=== PATIENT | male | born 1950 | race Caucasian/White ===

== ENCOUNTER 2020-08-31 14:06 | Outpatient (CLI) | payer MEDICARE, SELFPAY ==
--- NOTE | 2020-08-31 14:15 | USCV_ITS ---
Pedro Florence Age: 69 Gender: M : 1950 Exam Date: 08/31/2020 14:30 Ordering Phys: Hemant Loza DO Technologist: Qi Ferguson [place] [facility] [place]ication: LT LEG SWELLING AND PAIN PROCEDURES: Venous duplex imaging was performed in only the left lower extremity. The following venous structures were evaluated: common femoral vein, profunda vein, proximal portion of the greater saphenous vein, superficial femoral vein, and the popliteal vein. In addition, the posterior tibial and peroneal trunk were evaluated. Serial compression, augmentation maneuvers, and spectral Doppler flow evaluation were performed. FINDINGS: Normal 2-D Doppler and augmentation and compressibility throughout the lower extremity venous structures. Additional imaging through the proximal calf veins also reveals no thrombus. Limited evaluation of the greater saphenous vein is patent with no thrombus.. CONCLUSIONS No evidence of left lower extremity DVT. Guillermo Emery MD (Electronically Signed) Final Date: 31 August 2020 15:35 S
== END 2020-08-31 14:07 | disposition home or self-care (01) ==
LOC: RAD 14:13
PROVIDERS: Visit Provider Orthopaedic Surgery
DX: M79.662 Pain in left lower leg (principal); M79.89 Other specified soft tissue disorders
CPT/HCPCS: 87635; 93971

== ENCOUNTER 2020-09-02 06:35 | Inpatient (IN) | payer MEDICARE, SELFPAY ==
[2020-09-01 12:34] VITALS: BMI 21.7
[2020-09-02] VITALS (23 sets, daily range): BP systolic 142–209; BP diastolic 73–151; PULSE 73–118; RESP 14–30; TEMP 36.2–37.2; O2SAT 90–100
--- NOTE | 2020-09-02 | SCC_ITS ---
Procedure Done: ORIF Left Tibial Plateau 135.5 seconds of fluoroscopic guidance, for a cumulative dose of 7.62 mGy, was provided to Dr. Loza by the radiology department. C-arm images of the LEFT lower leg were saved for the patient's permanent record. [facility] CENTERDylan
--- NOTE | 2020-09-02 | XR_ITS ---
WS: [id number] INTRAOPERATIVE TECHNIQUE: 4 Spot fluoroscopic images for intraoperative purposes. FLUOROSCOPY TIME: 135.5 seconds CLINICAL INFORMATION: orif left knee COMPARISON: None. FINDINGS: Plate and screw fixation left tibia. Hardware appears in good position. XR/XR knee LT 1-2V [id number] IMPRESSION: Images obtained for intraoperative purposes.
--- NOTE | 2020-09-02 06:39 | XRR_ITS ---
PROCEDURE INFORMATION: Exam: XR Chest, 1 View Exam date and time: 09/02/2020 6:53 AM Age: 69 years old Clinical indication: Pre-operative exam; Cardiovascular screening and respiratory screening exam; Additional info: Pre op TECHNIQUE: Imaging protocol: XR of the chest Views: 1 view. COMPARISON: CR Chest 1 view [id number] 08/15/2020 8:34 PM FINDINGS: Lungs: Emphysema Pleural space: Probable calcification right apex. In mild apical pleural thickening. Asymmetric opacity right greater than left. Consider CT chest. Heart/Mediastinum: Unremarkable. No cardiomegaly. Bones/joints: Unremarkable. XR/XR chest 1V portable [id number] IMPRESSION: Possible calcification right apex. mild apical pleural thickening. Asymmetric opacity right greater than left. Consider CT chest. .
--- NOTE | 2020-09-02 06:39 | ECG_ITS ---
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 Measurements Intervals [place] Rate: 85 P: 61 MD: 95 QRS: 77 QRSD: 100 T: 76 QT: 375 QTc: 448 Interpretive Statements SINUS RHYTHM WITH SHORT MD INTERVAL POSSIBLE RIGHT VENTRICULAR CONDUCTION DELAY [RSR (QR) IN V1/V2] VOLTAGE CRITERIA FOR LVH No previous ECG available for comparison Electronically Signed On 09-02-2020 12:56:57 CDT by Francisca Gallo M.D. [id number]
--- NOTE | 2020-09-02 07:06 | ANES.PREANE2 ---
Pre-Anesthetic Assessment Pre-Anesthetic Assessment: Height/Weight: Height 1.83 m Weight 72.575 kg Preop Diagnosis: Left Tibial [place] Proposed Procedure: Operation Date: 09/02/20 08:10 Proposed Procedures p ORIF Left Tibial Plateau with removal of external fixator 57388 S82.142A(Left) - Hemant Loza DO s Hardware Removal External Fixator Lower(Left) - Hemant Loza DO Familial anesthetic complications: None Was Beta Caro taken within 24 hours: N/A Last intake: NPO > 8 hrs Social: Social History: Alcohol (used to drink 12 pack a day, none in 3 weeks) and Tobacco Exam: Pre-Anes Outpt Exam: alert, oriented x 3, clear to auscultation bilaterally and regular rate & rhythm Airway: Cervical ROM: WNL MP: 2 Dentition: Other (edentulous) Additional comments: full delgado GI: GI: GERD Anesthetic Plan: ASA status: 2 Anesthesia: General and Regional (specify below) Risk of > 500 ml blood loss (7ml/kg in children): No PFSH Anesthesia PFSH: Social History Smoking and tobacco status: current every day smoker cigarettes Packs smoked per day: 2 Alcohol intake: former Year of sobriety/quit date alcohol: 2 wk Data Anesthesia Cardiac Studies: No Data to Display
[2020-09-02] MEDS: sodium chloride 0.9% 1,000 ML 30 ML IV (07:21)
--- NOTE | 2020-09-02 08:15 | W.PM.OPSUD ---
Surgery/Procedure H&P Update DATE OF PROCEDURE: September 02, 2020 DATE H&P PERFORMED: 08/31/20 H&P UPDATE INFORMATION: I have reviewed H&P completed within last 30 days, I have examined patient prior to procedure, No changes to prior documentation and H&P is in [facility] EMR on date indicated PREOP DIAGNOSIS: Left Tibial [place] PLANNED PROCEDURE: Operation Date: 09/02/20 08:10 Proposed Procedures p ORIF Left Tibial Plateau with removal of external fixator 71188 S82.142A(Left) - Hemant Loza DO s Hardware Removal External Fixator Lower(Left) - Hemant Loza DO Related Problem List Diagnoses (1) Tibial plateau fracture, left: Qualifiers: Encounter type: initial encounter Fracture type: closed Qualified Code(s): S82.142A - Displaced bicondylar fracture of left tibia, initial encounter for closed fracture
--- NOTE | 2020-09-02 08:17 | P.OP_ITS ---
Operative Report Date of procedure: September 02, 2020 Pre-op Diagnosis: Left Tibial Plateau Post-op diagnosis: same Procedure Done: ORIF Left Tibial Plateau Removal ex fix from left leg Implants: [place] Surgeon: Hemant Loza Anesthesia: General Estimated blood loss (mL): 5 Tourniquet time (min): 70 Complications: none Condition: stable Disposition: PACU Procedure: Procedure is patient is a 69-year-old male who sustained a left tibial plateau fracture was treated in [place] with an external fixator and sent to [place] for definitive treatment. Patient was brought to the operative suite placed in the supine position. All areas impingement were well padded patient was prepped and draped in normal sterile fashion. Skin was made along the lateral tibial plateau. Once the fracture was exposed [id number] reduction clamps were placed to reduce the fracture. Lag screw was placed from lateral to medial to hold the fracture reduced and then a [place] proximal tibial plate was placed. Multiple screws were placed with the proximal part of the plate. Attempts were made to reduce the medial side fracture without having to open it. However was elected to open the medial side and place a buttress plate. 2 screws were placed proximal and distal to the fracture. The distal end of the lateral plate had 3 screws placed. AP lateral fluoroscopy of the tibia were taken and showed adequate position of the fracture and hardware. Patient had wounds were closed with Vicryl and renae. Patient was then had sterile dressings placed and was transferred to the PACU in stable condition Associated Problem List Diagnoses (1) Retained orthopedic hardware: (2) Tibial plateau fracture, left: Qualifiers: Encounter type: initial encounter Fracture type: closed Qualified Cod e(s): S82.142A - Displaced bicondylar fracture of left tibia, initial encounter for closed fracture
[2020-09-02] MEDS: labetalol 5 mg/mL SDV 20mL 10 MG IVP ×2 (11:01→13:44)
--- NOTE | 2020-09-02 11:02 | SUR.PHASEI ---
1053 PATIENT TO PACU FROM OR. RR EVEN AND UNLABORED. DRESSING TO LEFT LEG, CDI.
[2020-09-02] MEDS: fentaNYL 50 mcg/mL INJ 2mL IVP ×2 (11:10→11:19)
--- NOTE | 2020-09-02 11:19 | P.DS_ITS ---
Discharge Providers Date of Discharge: September 02, 2020 Attending Provider at Discharge: Hemant Loza DO Diagnoses at Discharge Discharge Diagnosis (1) Retained orthopedic hardware: Status: Acute (2) Tibial plateau fracture, left: Status: Acute Qualifiers: Encounter type: initial encounter Fracture type: closed Qualified Code(s): S82.142A - Displaced bicondylar fracture of left tibia, initial encounter for closed fracture Reason for Visit Reason for Visit: ORIF left tibial plateau fracture with removal of Hospital Course Discharge Summary: Patient had open reduction internal fixation of the left tibial plateau on his admission date of 09/02. On rounds on 102 patient had his pain controlled and was ready to go home however his blood pressure is elevated at 190/100. The plan will be to discharge him today if this can get under control and I will see him back in the clinic in 2 weeks. Discharge Data Data Completed and Pending: Completed Studies During Hospitalization Category Date Time Status XR chest 1V dhruv ble [id number] Routine Exams 09/02/20 06:39 Completed XR knee LT 1-2V 7 3560 Routine Exams 09/02/20 Completed Pending at discharge Category Date Time Status C-arm Fluoroscopy [id number] Routine Exams 09/02/20 08:05 Taken Vitals: Last Vital Signs Temp 97.4 F L 09/02/20 10:53 Pulse 74 09/02/20 11:15 Resp 30 H 09/02/20 11:15 BP 159/84 09/02/20 11:15 Pulse Ox 97 09/02/20 11:15 Discharge Plan Discharge Patient Disposition: Home Condition: Stable Prescriptions: No Action pantoprazole [Protonix] 20 mg tablet,delayed release (DR/EC) 20 mg PO DAILY RF: 0 ferrous sulfate [Feosol] 325 mg (65 mg iron) tablet 325 mg PO DAILY RF: 0 ascorbate calcium (vitamin C) 500 mg tablet 500 mg PO DAILY RF: 0 multivitamin Capsule 1 cap PO DAILY RF: 0 hydrocodone-acetaminophen [[place]] 5-325 mg tablet 1 tab PO BID PRN (Reason: Pain) RF: 0 enoxaparin [Lovenox] 30 mg/0.3 mL syringe 30 mg SUBCUT Q12H RF: 0 Referrals: Hemant Loza DO [Physician] - 2 weeks Discharge Diet: Advance as tolerated Discharge Activity: Increase activity as tolerated, Use walker/crutches as instructed and As per PT/OT instructions Activity Restrictions/Additional Instructions: You are being discharged from the hospital today during which time you have been under the care of Dr. Loza. You had a left tibial plateau fracture. You were treated for this injury with open reduction internal fixation. You may resume you normal diet (including any special diets as directed by your primary doctor) as well as your home medications. You should follow up with you primary doctor if you have any questions regarding medication you took prior to your stay in the hospital. You may take your pain medication as prescribed. After the first few days, take your pain medication as needed. Do not drive or drink alcohol while taking your pain medication. Your injury may increase your risk of developing a blood clot,or DVT, in your arm or leg. This could potentially dislodge and travel to your lungs and become a life threatening condition called a pulmonary embolus,or PE. You have been prescribed Lovenox to be taken to prevent this. Frequent movement of the lower extremities will also help prevent this from occurring. If you develop any new or worsening cough, chestpain, bloody sputum or shortness of breath, call 911 or go to the Emergency Room. Always keep your surgical incision/dressing clean and dry. If you experience increasing pain at your incision site, redness, swelling, increasing discharge, foul odors, or fevers (greater than 100.4), night sweats or chills you should call the office at the above number. If you feel this is an emergency you should be evaluated in the Emergency Department of a nearby hospital. Orthopedic Patient Instructions Summary: Weight Bearing: Nonweightbearing left lower extremity Activity: As tolerated. Diet: Regular. Splint Care: Keep dressing clean and dry. Cover with a plastic bag for bathing. Wound Care: Keep dressing clean and dry. Anticoagulation: Lovenox Pain Medication: Take only as needed. Ice, rest and elevation will be of great benefit. Please plan to follow-up [facility] Dr Loza in 2 weeks. You will need to call the clinic [phone] to schedule this visit. Thank you far allowing me to participate in your care. Do not hesitate to call the office with any questions or concerns. 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
--- NOTE | 2020-09-02 11:30 | PM.PACU ---
PACU note Post-Anesthesia Exam: awake and vital signs stable Disposition: admitted
--- NOTE | 2020-09-02 11:45 | PC.NURSE ---
patient arrived on unit from PACU
--- NOTE | 2020-09-02 11:46 | SUR.PHASEI ---
1131 PATIENT TO MED SURG FROM PACU. NO DISTRESS. PATIENT CONTINUES TO HAVE SOME PAIN. DRESSING TO LEFT LEG, SMALL AMOUNT OF BLOOD, PRIMARY NURSE ON MED SURG AWARE. PATIENT NOTED TO BE INCONTINENT OF URINE, PATIENTS CLEANED AND NEW SHEETS GIVEN. ANESTHESIA AWARE OF LAST DOSE OF PAIN MEDICATION. THIS NURSE REMAINED WITH PATIENT UNTIL 1140.
[2020-09-02] MEDS: HYDROcodone-acetaminophen 5-325 mg Tablet PO ×3 (12:30→20:58)
--- NOTE | 2020-09-02 13:52 | PM.CONSULT ---
Providers/Reason For Consult Consulting Physican/Specialty*: Ashlyn Zapata hospitalist Reason for Consult*: Medical management Attending Physician: Hemant Loza DO History of Present Illness History of Present Illness Pedro Florence is a 69 year old male with a past medical history of recent GI bleed that presented to the hospital for scheduled repair of left tibial plateau fracture. Patient reports that he was doing well today prior to admission. He states that he has been on Protonix, iron and vitamin C along with Lovenox injections for the past 1 week. He stated that just over a week ago he had a fall in the bathroom, reported that he could not recall events that led to this fall, reported to be mechanical in nature. Patient reports that he was hospitalized had an EGD performed which showed a duodenal ulcer he was given Protonix and discharged to home. Stated that he was transfused 5 units of packed red blood cells during this hospital stay. This was confirmed with patient's . Patient denies any further concern for GI bleed. Denies any further alcohol use, denies any history of cirrhosis or esophageal varices. Review of Systems Const: Denies: fever(s) or chills Eyes: Denies: change in vision ENMT: Denies: nasal congestion Card: Denies: chest pain, palpitations or edema Resp: Denies: dyspnea, productive cough or hemoptysis GI: Denies: abdominal pain, nausea, vomiting, diarrhea, constipation, hematochezia or melena : Denies: dysuria or hematuria Musc: Reports: extremity pain; Denies: muscle cramps Skin/Breast: Denies: rash or new lesions Neuro: Denies: headache(s) or dizziness Psych: Denies: anxiety or depression Endo: Denies: polyuria or hot flashes [place]/Lymph: Denies: easy bruising or easy bleeding Meds/Allergies Home Medications and Allergies Home Medications Medication Instructions Recorded Confirmed Last Taken Type ascorbate calcium (vitamin C) 500 500 mg PO DAILY 08/31/20 09/01/20 09/01/20 History mg tablet enoxaparin 30 mg/0.3 mL 30 mg SUBCUT Q12H 08/31/20 09/01/20 09/01/20 History subcutaneous syringe ferrous sulfate 325 mg (65 mg 325 mg PO DAILY 08/31/20 09/01/20 09/01/20 History iron) tablet hydrocodone 5 mg-acetaminophen 325 1 tab PO BID PRN 08/31/20 09/01/20 09/01/20 History mg tablet multivitamin 1 cap PO DAILY 08/31/20 09/01/20 09/01/20 History pantoprazole 20 mg tablet,delayed 20 mg PO DAILY 08/31/20 09/01/20 09/01/20 History release Allergies Allergy/AdvReac Type Severity Reaction Status Date / Time ibuprofen Allergy per patient Verified 08/31/20 10:17 Current Medications Current Medications Generic Name Dose Route Start Last Admin Trade Name Freq PRN Reason Stop Dose Admin Hydrocodone Bitart/Acetaminophen 1 - 2 tab 09/02/20 11:44 09/02/20 12:30 [place] 5-325 Mg PO 2 tab Q4H PRN Administration BREAKTHROUGH PAIN PFSH Acute PFSH: Medical History (Updated 09/02/20 @ 13:55 by Ashlyn Zapata DO) History of alcoholism History of duodenal ulcer History of GI bleed requiring 5 units of blood History of tobacco abuse Hypertension Surgical History (Updated 09/02/20 @ 13:55 by Ashlyn Zapata DO) History of ankle surgery L ankle History of esophagogastroduodenoscopy (EGD) Family History (Updated 09/02/20 @ 13:56 by Ashlyn Zapata DO) Father CAD (coronary artery disease) Social History (Updated 09/02/20 @ 13:58 by Ashlyn Zapata DO) Smoking and tobacco status: current every day smoker cigarettes Packs smoked per day: 2 Alcohol intake: former Year of sobriety/quit date alcohol: 2 wk Former alcohol use details: 12 beers per day Substance/Drug Use: never Marital status: Vitals/I&O/Wt Last Vital Signs Temp 98.5 F 09/02/20 12:45 Pulse 87 09/02/20 13:48 Resp 19 H 09/02/20 13:48 BP 180/86 09/02/20 13:48 Pulse Ox 97 09/02/20 13:48 09/01/20 09/02/20 09/02/20 22:59 06:59 14:59 Intake Total 50 / 50 Output Total 25 / 25 Balance 25 / 25 Weight last 48 hrs Weight 72.575 kg Physical Exam Const: COMMON NORMALS: patient oriented x3 and alert GENERAL APPEARANCE: cooperative ORIENTATION/CONSCIOUSNESS: Yes awake, Yes oriented to person, Yes oriented to place and Yes oriented to time HENMT: COMMON NORMALS: normocephalic and atraumatic HEAD & SCALP: normocephalic and atraumatic Eye: COMMON NORMALS: Equal, round and reactive pupils present PUPIL: Yes Equal, round and reactive pupils present Neck/C-Spine: COMMON NORMALS: supple GENERAL: Yes normal visual inspection Resp: COMMON NORMALS: normal respiratory effort and clear to auscultation bilaterally EFFORT & INSPECTION: Yes able to speak in complete sentences AUSCULTATION: clear to auscultation bilaterally, no rhonchi and no wheezes Cardio: COMMON NORMALS: regular rate, regular rhythm and No murmurs present (Cardio) RATE: regular rate RHYTHM: regular rhythm GI: COMMON NORMALS: Soft to palpation and non-tender INSPECTION: No abdominal distension AUSCULTATION: Yes normoactive bowel sounds PALPATION: Yes Soft to palpation Extremity: COMMON NORMALS: no calf tenderness NARRATIVE EXTREMITY EXAM: Postoperative dressing in place in the L LE Neuro: COMMON NORMALS: patient oriented x3, CN's II-XII intact bilaterally and no focal motor deficits SENSORIUM/ORIENTATION: Yes alert, Yes oriented to person, Yes oriented to place and Yes oriented to time SPEECH: speech normal Psych: COMMON NORMALS: mental status grossly normal and cooperative Skin: COMMON NORMALS: no rashes or lesions noted GENERAL SKIN EXAM: no rashes or lesions noted A&P Assessment and plan (1) Tibial plateau fracture, left: Per orthopedic surgery We will follow along with postoperative care Status: Acute Qualifiers: Encounter type: initial encounter Fracture type: closed Qualified Code(s): S82.142A - Displaced bicondylar fracture of left tibia, initial encounter for closed fracture (2) Retained orthopedic hardware: Status: Acute (3) History of GI bleed: Recent history of GI bleed requiring 5 units of packed red blood cells approximately 1 week ago Increase Protonix to 40 mg twice daily Continue to monitor for any melanotic stools, if patient has any recurrence would recommend discontinuation of Lovenox We will obtain records from outside facility Status: Acute (4) Hypertension: Patient with elevated blood pressure given IV labetalol x1, ordered for additional dose and ordered for amlodipine 5 mg to be given now and daily Status: Acute (5) History of alcoholism: Patient reports history of alcohol abuse, 12 beers per day, quit drinking approximately 12 days ago, denies any history of cirrhosis, denies any history of esophageal varices Status: Acute (6) History of tobacco abuse: Strongly encourage cessation Status: Acute Additional A&P Information DVT prophylaxis: Currently on Lovenox, due to concern as noted above we will further evaluate his further labs return Diet: Regular diet Consult Attestations Medical Necessity Statement: Patient requires hospitalization due to left tibial plateau fracture with recent GI bleed and anemia Coding Level of Care Code 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
--- NOTE | 2020-09-02 13:59 | PC.NURSE ---
Notified Dr Loza that patient had bleeding at surgery site. Per Dr Loza, reinforce dressing.
--- NOTE | 2020-09-02 14:06 | PC.NURSE ---
Dressing reinforced with ABD and kerlix
[2020-09-02] MEDS: amlodipine 5 mg Tablet PO (14:11)
--- NOTE | 2020-09-02 14:25 | PC.OT ---
OT evaluation attempted today and information gathered. Due to pain and high blood pressure evaluation was not completed. Will reattempt tomorrow. Co-sign: JAVIER Broussard/Lisa
[2020-09-02 14:38] LABS: Basophils % 0.2 %; Eosinophils % 0.1 %; Hematocrit 29.5 % (42.0-52.0); Lymphocytes # 0.4 10^3/uL (0.8-4.8); Lymphocytes % 3.1 %; Mean Corpuscular HGB Conc 30.5 g/dL (30.0-36.0); Mean Corpuscular Hemoglobin 32.7 pg (28.0-34.0); Mean Corpuscular Volume 107.3 fL (80-94); Mean Platelet Volume 8.6 fL (7.4-10.4); Monocytes # 0.3 10^3/uL (0.2-0.9); Monocytes % 2.3 %; Neutrophils # 10.77 10^3/uL (1.8-7.7); Neutrophils % 93.4 %; Nucleated Red Blood Cells % 0 %; Platelet Count 416 10^3/cmm (130-400); Red Blood Count 2.75 10^6/uL (4.1-5.3); Red Cell Distribution Width 15.6 % (12.1-15.1); White Blood Count 11.5 10^3/uL (4.0-10.0)
[2020-09-02 14:54] LABS: Alanine Aminotransferase 25 U/L (0-41); Albumin Level 3.6 g/dL (3.5-5.2); Alkaline Phosphatase 146 IU/L (40-130); Anion Gap 14.4 (5-19); Aspartate Amino Transferase 24 U/L (0-40); Blood Urea Nitrogen 6 mg/dL (8-23); Calcium 8.4 mg/dL (8.5-10.5); Carbon Dioxide 26 mmol/L (22-29); Chloride 99 mmol/L (98-107); Creatinine Clr Calc Pharmacy 95.7998; Globulin 2.6 g/dL (1.3-4.6); Glomerular Filtration Rate 165.9 mL/min (90-130); Glucose 175 mg/dL (65-115); Osmolality Calculated 282 mOsm/kg (285-295); Potassium 4.4 mmol/L (3.5-5.1); Sodium 135 mmol/L (136-145); Total Bilirubin 0.3 mg/dL (0.15-1.2); Total Protein 6.2 g/dL (6.6-8.7)
[2020-09-02] MEDS: pneumococcal (23 valent) SDV 0.5 mL IM (15:42)
--- NOTE | 2020-09-02 15:51 | PC.NURSE ---
I reported the high bp to the nurse 194/
--- NOTE | 2020-09-02 15:53 | PC.NURSE ---
Notified Dr Zapata that patient's blood pressure is 194/99. Dr Zapata is putting order in for PO hydralazine.
[2020-09-02] MEDS: hyDRALAzine 25 mg Tablet PO ×2 (15:56→20:58)
[2020-09-02 16:25] LABS: Add Urine Microscopic? NO
[2020-09-02 16:27] LABS: Bilirubin Urine Neg (Negative); Blood Urine Neg (Negative); Glucose Urine UA Norm (Normal); Ketones Urine Negative (Negative); Nitrate Urine Negative (Negative); Protein Urine Neg (Negative); Specific Gravity, Urine 1.005 (1.005-1.030); Urine Appearance Clear (CLEAR); Urine Color Yellow (Yellow); pH Urine 7 (5-7)
[2020-09-02 16:28] LABS: Leukocyte Esterase Urine Negative (Negative); Urobilinogen Urine Norm (Negative)
[2020-09-02] MEDS: pantoprazole DR 40 mg Tablet PO (17:04)
[2020-09-02] MEDS: acetaminophen 500 mg Tablet 1000 MG PO (17:04)
[2020-09-02] MEDS: enoxaparin 30 mg/0.3 mL Syringe SUBCUT (17:05)
[2020-09-03] VITALS: BP 173/88; PULSE 96; RESP 16; TEMP 36.5; O2SAT 97
[2020-09-03] MEDS: HYDROcodone-acetaminophen 5-325 mg Tablet PO ×2 (01:30→05:57)
[2020-09-03 04:00] VITALS: BP 180/87; PULSE 89; RESP 16; TEMP 36.5; O2SAT 99
[2020-09-03] MEDS: enoxaparin 30 mg/0.3 mL Syringe SUBCUT (05:57)
[2020-09-03 06:12] LABS: Hematocrit 27.7 % (42.0-52.0); Hemoglobin 8.8 g/dL (11.7-16.6)
[2020-09-03 06:13] VITALS: BP 190/100
[2020-09-03] MEDS: amlodipine 5 mg Tablet PO (06:22)
[2020-09-03] MEDS: hyDRALAzine 25 mg Tablet PO (06:22)
[2020-09-03 06:34] LABS: Anion Gap 12.4 (5-19); Blood Urea Nitrogen 6 mg/dL (8-23); Calcium 8.8 mg/dL (8.5-10.5); Carbon Dioxide 28 mmol/L (22-29); Chloride 94 mmol/L (98-107); Glomerular Filtration Rate 165.9 mL/min (90-130); Glucose 118 mg/dL (65-115); Osmolality Calculated 269 mOsm/kg (285-295); Potassium 4.4 mmol/L (3.5-5.1); Sodium 130 mmol/L (136-145)
[2020-09-03 06:38] LABS: Creatinine Clr Calc Pharmacy 95.7998
--- NOTE | 2020-09-03 06:40 | PC.NURSE ---
Patient rested well through the night. Blood Pressure continued to be elevated. Hospitalist was contacted and ordered to give morning BP meds. Pain was managed much better this evening.
--- NOTE | 2020-09-03 07:27 | PM.PN ---
Subjective Subjective: Interval history: Patients pain under control this am. Pt stated he really wants to get out of here today. Vitals/I&O/Wt Last Vital Signs Temp 97.7 F 09/03/20 04:00 Pulse 89 09/03/20 04:00 Resp 16 09/03/20 04:00 BP 190/100 09/03/20 06:13 Pulse Ox 99 09/03/20 04:00 09/02/20 09/03/20 09/03/20 22:59 06:59 14:59 Intake Total 530 / 940 240 / 1180 Output Total 1900 / 1925 750 / 2675 Balance -1370 / -985 -510 / -1495 Weight last 48 hrs Weight 160 lb Physical Exam Extremity: COMMON NORMALS: normal to inspection, capillary refill normal, no clubbing, cyanosis or edema and no calf tenderness NARRATIVE EXTREMITY EXAM: Skin: Intact and healthy Swelling: minimal Tenderness location: over kne Tenderness severity: mild No tenderness remaining ipsilateral extremity bones/joints Range of Motion: Ankle Dorsiflexionintact Platarflexion: intact Knee Extension: [not tested] Flexion: [not tested] Hip Flexion: [intact] External rotation: [intact] Internal rotation: intact] Sensation: Intact to light touch Motor exam: Flexes and extends toes and ankle, flexes and extends LEFT LOWER EXTREMITY: Yes hip joint Left hip: Yes neurovascular exam, Yes upper leg, Yes knee joint, Yes lower leg and Yes foot & digits OTHER: Dressing in place no further bleeding Data : 09/03/20 04:57 09/03/20 04:57 A&P Additional A&P Information POD #1 ORIF left tibial platea fracture NWB LLE Up with PT Mr Florence BP is elevated I will defer to the Hospitalist Service (Dr Zapata) further recommendations regarding this. 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
[2020-09-03 07:33] VITALS: BP 172/80
[2020-09-03 07:37] VITALS: BP 109/60; PULSE 67; RESP 18; TEMP 36.7; O2SAT 96
--- NOTE | 2020-09-03 08:02 | PM.PN ---
Subjective Subjective: Interval history: Patient awake and sitting at the side of bed upon entering the room. He denied any chest pain or shortness of breath. Reported that pain in his left leg was well controlled. Denied any concerns. Discussed with patient plan for discharge to home, he verbalized understanding and agreed with plan. Vitals/I&O/Wt Last Vital Signs Temp 98.0 F 09/03/20 07:37 Pulse 67 09/03/20 07:37 Resp 18 09/03/20 07:37 BP 109/60 09/03/20 07:37 Pulse Ox 96 09/03/20 07:37 09/02/20 09/03/20 09/03/20 22:59 06:59 14:59 Intake Total 530 / 940 240 / 1180 Output Total 1900 / 1925 750 / 2675 Balance -1370 / -985 -510 / -1495 Weight last 48 hrs Weight 72.575 kg Physical Exam Const: COMMON NORMALS: patient oriented x3 and alert GENERAL APPEARANCE: cooperative ORIENTATION/CONSCIOUSNESS: Yes awake, Yes oriented to person, Yes oriented to place and Yes oriented to time HENMT: COMMON NORMALS: normocephalic and atraumatic HEAD & SCALP: normocephalic and atraumatic Eye: COMMON NORMALS: Equal, round and reactive pupils present PUPIL: Yes Equal, round and reactive pupils present Neck/C-Spine: COMMON NORMALS: supple GENERAL: Yes normal visual inspection Resp: COMMON NORMALS: normal respiratory effort and clear to auscultation bilaterally EFFORT & INSPECTION: Yes able to speak in complete sentences AUSCULTATION: clear to auscultation bilaterally, no rhonchi and no wheezes Cardio: COMMON NORMALS: regular rate, regular rhythm and No murmurs present (Cardio) RATE: regular rate RHYTHM: regular rhythm GI: COMMON NORMALS: Soft to palpation and non-tender INSPECTION: No abdominal distension AUSCULTATION: Yes normoactive bowel sounds PALPATION: Yes Soft to palpation Extremity: COMMON NORMALS: no calf tenderness NARRATIVE EXTREMITY EXAM: Postoperative dressing in place in the L LE Neuro: COMMON NORMALS: patient oriented x3, CN's II-XII intact bilaterally and no focal motor deficits SENSORIUM/ORIENTATION: Yes alert, Yes oriented to person, Yes oriented to place and Yes oriented to time SPEECH: speech normal Psych: COMMON NORMALS: mental status grossly normal and cooperative Skin: COMMON NORMALS: no rashes or lesions noted GENERAL SKIN EXAM: no rashes or lesions noted Data : 09/03/20 04:57 09/03/20 04:57 A&P Assessment and plan (1) Tibial plateau fracture, left: Per orthopedic surgery We will follow along with postoperative care Postop day #1, plan for discharge to home today with outpatient physical therapy Status: Acute Qualifiers: Encounter type: initial encounter Fracture type: closed Qualified Code(s): S82.142A - Displaced bicondylar fracture of left tibia, initial encounter for closed fracture (2) Retained orthopedic hardware: Status: Acute (3) History of GI bleed: Increase Protonix to twice daily Status: Acute (4) Hypertension: Discharge to home with amlodipine 5 mg daily Status: Acute (5) History of alcoholism: Patient reports history of alcohol abuse, 12 beers per day, quit drinking approximately 12 days ago, denies any history of cirrhosis, denies any history of esophageal varices Status: Acute (6) History of tobacco abuse: Strongly encourage cessation Status: Acute Additional A&P Information DVT prophylaxis: Currently on Lovenox Diet: Regular diet Attestations Medical Necessity Statement*: Plan for discharge to home today Coding Level of Care Code 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
[2020-09-03] MEDS: ferrous sulfate EC 325 mg Tablet PO (09:17)
[2020-09-03] MEDS: pantoprazole DR 40 mg Tablet PO (09:18)
[2020-09-03] MEDS: ascorbic acid 500 mg Tablet PO (09:19)
--- NOTE | 2020-09-03 10:12 | PC.CHAP ---
Pastoral Care Encounter/Spiritual Assessment Type of Contact [] Declined office support clerk visit [] Patient/Family/Request visit [] Outpatient visit [] Follow-up visit [] Physician referral [] Code/Alert [x] Routine visit [] Staff referral [] Actively dying [] Patient sleeping [] Family support [] [] Out of room [] Palliative care [] [x] Receiving care in room [] Pre-surgical visit [] Trauma [] Long length of stay [] ICU visit [] Other: Relational/Emotional Strength [x] Patient feels connected with others/family/visitors/staff [] Distress [] Loneliness/isolation [] Abandonment Spirituality of Patient [] Person of Anastacia [] Attends Taoist of their Anastacia [] Believes in Prayer [] Reads Bible or Samaritan materials [] There are Spiritual issues to be addressed Utilities Service Investigator Interventions [] Prayer [] Active listening [] Non-anxious presence [] Spiritual/emotional support [] Crisis/trauma care [] Spiritual counseling [] Bereavement support [] Provided bereavement packet [] Provided Bible/devotional materials [] Provided toy/stuffed animal, coloring book to patient or family member [] Provided Communion [] Anointing/[place] [] Salvation [] Completed spiritual assessment [] Other: Impact on Illness or Injury [] Angry [] Fearful [] Anxious [] Often cries [] Exhaustion [] Unable to work [] Unable to attend anabaptist [] Unable to walk/stand [] Unable to read [] Unable to drive [] Unable to eat/drink [] Unable to sleep [] Unable to be with family [] Patient intubated [] Other: Summary Had surgery doing well, will need some recover time, has a good attitude, going home Time spent with patient 10 mins
--- NOTE | 2020-09-03 11:04 | ANE.PACU2 ---
Inpatient post-anesthesia follow up: Airway intact: Yes Vital signs: Temperature 98.0 F Pulse Rate 67 Respiratory Rate 18 Blood Pressure 109/60 Pulse Oximetry 96 Oxygen Delivery Me thod Room Air Oxygen Flow Rate 10 Fraction of Inspir ed Oxygen Hydration adequate: Yes Nausea and vomiting: No Pain level: 3 Mental status: Baseline
--- NOTE | 2020-09-03 11:18 | PC.NURSE ---
Discharge instructions given to patient. patient verbalized understanding of instructions. patient taken to private vehicle via wheelchair.
[2020-09-03 11:19] VITALS: BP 109/60; PULSE 67; RESP 18; TEMP 36.7; O2SAT 96
--- NOTE | 2020-09-04 15:36 | PC.RESP ---
SMOKING CESSATION INFORMATION SENT TO PATIENT.
== END 2020-09-03 11:20 | disposition home health service (06) | DRG 494 ==
LOC: OR 11:21 → MEDSURG 11:25
PROVIDERS: Family Medicine; Admitting Provider Orthopaedic Surgery; Visit Provider Orthopaedic Surgery
PROC: 0QSH04Z Reposition Left Tibia with Internal Fixation Device, Open Approach (ICD-10-PCS; principal; 2020-09-02 08:10)
PROC: 0QSH04Z Reposition Left Tibia with Internal Fixation Device, Open Approach (ICD-10-PCS; CPT 20694; 2020-09-02 08:10)
DX: S82.142A Displaced bicondylar fracture of left tibia, initial encounter for closed fracture (principal); W18.30XA Fall on same level, unspecified, initial encounter; F17.210 Nicotine dependence, cigarettes, uncomplicated; F10.21 Alcohol dependence, in remission; K21.9 Gastro-esophageal reflux disease without esophagitis
CPT/HCPCS: 12345; 36415; 71045; 73560; 76000; 80048; 80053; 81003; 85014; 85018; 85025; 90471; 90686; 90732; 93005; 96372; 96375; 97116; 97161; 97166; C1713; J0131; J0690; J1100; J1650; J2370; J2405; J2704; J2710; J3010; J3490; J7030

== ENCOUNTER → 2020-11-17 14:38 | Outpatient (BNVA) | payer MEDICARE, SELFPAY | PROVIDERS: Visit Provider Orthopaedic Surgery | DX: Z48.89 Encounter for other specified surgical aftercare (principal); S82.102D Unspecified fracture of upper end of left tibia, subsequent encounter for closed fracture with routine healing; S82.832D Other fracture of upper and lower end of left fibula, subsequent encounter for closed fracture with routine healing; X58.XXXD Exposure to other specified factors, subsequent encounter | CPT/HCPCS: 73590 ==